=== PATIENT | male | born 1945 | race Caucasian/White ===

== ENCOUNTER 2018-10-12 21:15 | Observation (INO) | payer OTHER, MEDICARE ==
--- NOTE | 2018-10-12 21:53 | EDPHY ---
H & P Stated Complaint: a-fib Time Seen by Provider: 10/12/18 22:08 HPI/ROS: HPI CHIEF COMPLAINT: A fib HISTORY OF PRESENT ILLNESS: Very pleasant 73-year-old male, history of AFib on Eliquis metoprolol, forgot to take his metoprolol on Eliquis this morning. He states around 8:00 a.m. This evening he fell con a off and fatigued and lightheaded. Took his pulse and noted it was irregular fast the hook himself up to his phone EKG and that a red AFib. States he was getting heart rate in the 150s to 170s. Patient denies any chest pain or shortness of breath, denies any pleuritic pain. Patient denies any chest pain, shortness of breath, dyspnea on exertion. Past Medical History: AFib, multiple myeloma, bladder CA Past Surgical History: Knee surgery, gallbladder, bladder cancer removal Social History: Denies drugs alcohol tobacco. Family History: Noncontributory ROS REVIEW OF SYSTEMS: 10 Systems were reviewed and negative with the exception of the elements mentioned in the history of present illness. Exam Constitutional triage nursing summary reviewed, vital signs reviewed, awake/ alert. Appears well nontoxic Eyes normal conjunctivae and sclera, EOMI, PERRLA. HENT normal inspection, atraumatic, moist mucus membranes, no epistaxis, neck supple/ no meningismus, no raccoon eyes. Respiratory clear to auscultation bilaterally, normal breath sounds, no respiratory distress, no wheezing. Cardiovascular tachycardia, irregular, irregular rhythm no murmur, no edema, distal pulses normal. Gastrointestinal soft, non-tender, no rebound, no guarding, normal bowel sounds, no distension, no pulsatile mass. Genitourinary no CVA tenderness. Musculoskeletal no midline vertebral tenderness, full range of motion, no calf swelling, no tenderness of extremities, no meningismus, good pulses, neurovascularly intact. Skin pink, warm, & dry, no rash, skin atraumatic. Neurologic awake, alert and oriented x 3, AAOx3, moves all 4 extremities equally, motor intact, sensory intact, CN II-XII intact, normal cerebellar, normal vision, normal speech. Psychiatric normal mood/affect. Heme/Lymph/Immune no lymphadenopathy. Differential diagnosis includes but is not limited to: ACS, atypical chest pain , pneumothorax, pneumonia, pulmonary embolism, aortic dissection, congestive heart failure, tumor, musculoskeletal pain, esophageal pain, GERD, peptic ulcer disease, pancreatitis Medical Decision Making: Plan for this patient IV establishment IV fluid bolus , IV diltiazem, EKG, troponin, electrolytes, chest x-ray and re-evaluate. 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 Re-evaluation: EKG interpretation by me on record in [facility] system. Impression time of EKG 2135, AFib rate of 126, no acute ischemic changes. 1205: Patient remains tachycardia in AFib with RVR despite 20 mg IV diltiazem and diltiazem drip. Blood work has been reviewed. Negative troponin. Patient does not have chest pain. Chest x-ray: Negative for acute cardiopulmonary disease. Source: Patient - Personal History Current Tetanus Diphtheria and Acellular Pertussis (TDAP): Yes - Medical/Surgical History Hx Asthma: No Hx Chronic Respiratory Disease: No Hx Cardiac Disease: Yes Hx Renal Disease: No Hx Cirrhosis: No Hx Alcoholism: No Hx HIV/AIDS: No Hx Splenectomy or Spleen Trauma: No Other PMH: a- fib, multiple myloma, bladder ca - Social History Smoking Status: Never smoked Constitutional: Initial Vital Signs Temperature (C) 36.4 C 10/12/18 21:19 Heart Rate 85 10/12/18 21:19 Respiratory Rate 20 10/12/18 21:19 Blood Pressure 95/74 L 10/12/18 21:19 O2 Sat (%) 97 10/12/18 21:19 O2 Delivery Mode Room Air Allergies/Adverse Reactions: No Known Allergies Allergy (Unverified 10/09/09 15:26) Home Medications: Medication Instructions Recorded Apixaban [Eliquis] 5 mg PO BID 10/13/18 Dexamethasone [Decadron 4 MG (*)] 8 mg PO AD 10/13/18 Escitalopram Oxalate [Lexapro 10 5 mg PO DAILY 10/13/18 MG] LORazepam [Ativan (*)] 1 mg PO HS PRN 10/13/18 Metoprolol Tartrate [Lopressor 25 12.5 mg PO BID 10/13/18 mg (*)] Pomalidomide [Pomalyst] 2 mg PO AD 10/13/18 Medical Decision Making - Data Points Laboratory Results: Laboratory Results 10/12/18 21:35 10/12/18 21:35 Medications Given: Discontinued Medications Apixaban (Eliquis) 5 mg PO BID MAGDA Stop: 04/11/19 09:59 Last Admin: 10/13/18 11:36 Dose: 5 mg Diltiazem HCl (Cardizem 25 Mg/5 Ml Vial) 20 mg IVP EDNOW ONE Stop: 10/12/18 22:09 Last Admin: 10/12/18 22:16 Dose: 20 mg Escitalopram Oxalate (Lexapro) 5 mg PO DAILY MAGDA Stop: 04/11/19 09:59 Last Admin: 10/13/18 11:35 Dose: 5 mg Sodium Chloride (Ns) 1,000 mls @ 0 mls/hr IV EDNOW ONE; Wide Open PRN Reason: Protocol Stop: 10/12/18 22:09 Last Admin: 10/12/18 22:17 Dose: 1,000 mls Sodium Chloride (Ns) 1,000 mls @ 0 mls/hr IV ONCE ONE PRN Reason: Wide Open Stop: 10/12/18 23:27 Last Admin: 10/12/18 23:50 Dose: 1,000 mls Diltiazem/Dextrose (Diltiazem 125mg/125ml (Premix)) 125 mls @ 0 mls/hr IV EDNOW ONE; As Directed PRN Reason: Protocol Stop: 10/12/18 23:31 Last Admin: 10/12/18 23:51 Dose: 125 mls Sodium Chloride (Ns) 1,000 mls @ 100 mls/hr IV CONT MAGDA Stop: 04/11/19 04:59 Last Admin: 10/13/18 05:32 Dose: 1,000 mls Metoprolol Tartrate (Lopressor) 12.5 mg PO BID MAGDA Stop: 04/11/19 09:59 Last Admin: 10/13/18 11:35 Dose: 12.5 mg Point of Care Test Results: Chemistry 10/12/18 21:39 POC Troponin I 0.01 ng/mL ng/mL (0.00-0.08) Departure - Departure Disposition: [facility] Acute Clinical Impression: Atrial fibrillation Qualifiers: Atrial fibrillation type: unspecified Qualified Code(s): I48.91 - Unspecified atrial fibrillation Condition: Good
[2018-10-12] MEDS ORDERED: NS 1,000 ML IV ONE ×2 (22:08→23:26)
[2018-10-12] MEDS ORDERED: DILTIAZEM 25 MG/5 ML VIAL IVP ONE (22:08)
[2018-10-12 22:16] LABS: PLATELET COUNT 316 10^3/uL (150-400)
[2018-10-12 22:26] LABS: INR 0.94 (0.83-1.16); PROTIME(PATIENT) 12.8 SEC (12.0-15.0)
[2018-10-12] MEDS ORDERED: DILTIAZEM 125 MG in D5W 125 ML IV ONE (23:26)
[2018-10-12] MEDS ORDERED: DILTIAZEM HCL/D5W 125 ML IV ONE (23:30)
--- NOTE | 2018-10-12 23:36 | CPEKG ---
Test Reason : OPEN Blood Pressure : / mmHG Vent. Rate : 126 BPM Atrial Rate : 333 BPM P-R Int : 153 ms QRS Dur : 088 ms QT Int : 320 ms P-R-T Axes : 268 065 060 degrees QTc Int : 464 ms Atrial fibrillation Confirmed by Cinthia Navarrete ([id number]) on 10/12/2018 11:35:41 PM Referred By: Confirmed By:Cinthia Navarrete
[2018-10-13] MEDS ORDERED: ACETAMINOPHEN 325 MG TAB PO PRN (00:53)
[2018-10-13] MEDS ORDERED: ONDANSETRON 4 MG/2 ML VIAL IVP PRN (00:53)
[2018-10-13] MEDS ORDERED: ONDANSETRON DISINTEGRATING 4 MG TAB PO PRN (00:53)
[2018-10-13] MEDS ORDERED: DILTIAZEM 125 MG in D5W 125 ML IV SCH (01:00)
[2018-10-13] MEDS ORDERED: NS 1,000 ML IV SCH (05:00)
--- NOTE | 2018-10-13 05:58 | GHP ---
DATE OF ADMISSION: 10/13/2018 PRIMARY [facility] INSTALLER: [facility]. CHIEF COMPLAINT: Fast heart rate and generalized weakness. HISTORY OF PRESENT ILLNESS: This is a very pleasant 73-year-old gentleman with known history of atri al fibrillation, controlled with metoprolol and anticoagulated with Eliquis, multiple myeloma, remote history of bladder cancer, presents to the emergency department today with complaints of tachycardia and generalized weakness. The patient reports that he forgot his morning dose of metoprolol and Lucie ruth. He was at home this evening, he started to feel generally weak and slightly lightheaded. He d enies any chest pain or palpitations. He denies any shortness of breath or diaphoresis. No history of orthopnea, PND, or lower extremity edema. The patient used his cardia ap to evaluate his rhythm w [facility] reported it was in atrial fibrillation with heart rate in the 150s. He presented to the emergen cy department for additional evaluation and treatment. The patient has not had any regular episodes of atrial fibrillation with rapid ventricular response. He has generally been quite controlled since he was initially diagnosed with atrial fibrillation some time ago. REVIEW OF SYSTEMS: Ten systems reviewed and negative except as noted above. ALLERGIES: No known drug allergies. HOME MEDICATIONS: As per EMR, Revlimid, dexamethasone, aspirin, Ambien, Tussionex and Levaquin. PAST MEDICAL HISTORY: Significant for atrial fibrillation, controlled on metoprolol and anticoagulat ed on Eliquis, remote history of C. difficile in 2001, multiple myeloma on Revlimid, bladder cancer s tatus post resection in remission, and insomnia. PAST SURGICAL HISTORY: Significant for ACL repair in 1994, cholecystectomy, bladder cancer resection . FAMILY HISTORY: Negative for any cardiac disease or cardiac complications. SOCIAL HISTORY: The patient is , lives with his . They travel between [facility] and [place]. 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 He denies any tobacco, drugs, or alcohol. CODE STATUS: Full. PHYSICAL EXAMINATION: VITAL SIGNS: Upon arrival to the emergency department, blood pressure is 95/7 4, heart rate initially documented is 85, however, repeated is 130s, 140s, respiratory rate 20, O2 sa turation 97% on room air, temperature 36.4. Vitals currently available: Blood pressure is 90/60, re peat is 98/56, heart rate 56 to 60s, respiratory rate 13, O2 saturation 95% on room air, and temperat ure 36.6. GENERAL: No acute distress, pleasant adult gentleman is resting quietly in bed asleep. H e wakes easily to name. Pleasant and cooperative. HEAD: Normocephalic, atraumatic. EYES: Extraoc ular muscles grossly intact. Pupils equal, round, and reactive to light bilaterally and symmetric. No scleral icterus or conjunctival injection. ENT: Mucous membranes appear moist. No oropharyngeal erythema or exudates. Dentition intact. NECK: Supple. Trachea midline. CV: Regular rate and rh ythm, bradycardic 50s to 60s. No murmurs, rubs, or gallops appreciated. RESPIRATORY: Lungs clear t o auscultation bilaterally. No wheezes, rales, or rhonchi appreciated. ABDOMEN: Positive bowel mildred nds. Soft, nontender to palpation. No rebound, guarding, or masses appreciated. : No suprapubic tenderness to palpation. No Pastor catheter in place. EXTREMITIES: No cyanosis, clubbing, or edema . Patient with 2+ pedal pulses bilaterally and symmetric. NEURO: Grossly nonfocal. Moves all extr emities. Sits up independently. No facial drooping. PSYCH: Thought process, content and questions are all appropriate. Patient is pleasant and cooperative. LABORATORY STUDIES: WBC 6.81, H and H is 14.5 and 42.0, MCV of 94.0, platelet count is 316. No band s. PT is 12.8, INR 0.94, PTT is 30.1. Sodium is 138, potassium is 4.3, chloride 106, CO2 24, anion gap 8, BUN is 26, creatinine is 1.2, GFR of 60, glucose is 108, calcium is 9.3, magnesium 2.0, total bilirubin 0.6, ALT is 26, AST is 16, alkaline phosphatase 77. BTNP is 134. Total protein 6.1, album in is 3.8. TSH is 6.850. Point of care troponin 0.01. Chest x-ray: Image and report reviewed myself. Lungs are clear without any evidence of congestive h eart failure. EKG reviewed myself. Atrial fibrillation with RVR, rate in the 120s. No acute ST changes. ASSESSMENT/PLAN: A 73-year-old gentleman with history of atrial fibrillation on Eliquis and metoprol ol, multiple myeloma on Revlimid, who presents to the emergency department today with complaints of l ightheadedness and generalized weakness as well as noted tachycardia. 1. Atrial fibrillation with rapid ventricular response. The patient was given a diltiazem bolus fol lowed by a drip. He did have an initial episode of hypotension resolved with some IV fluid supplemen tation. The patient was subsequently converted into sinus bradycardia on telemetry shortly after arr ival to the PCU floor. Will plan to IV fluid hydrate and resume patient's metoprolol and Eliquis. T he patient has outpatient followup with Cardiology in [place] where he plans to return after the new year already set up. A TSH was obtained and was mildly elevated. Remainder TFTs are pending for tony luation. TSH may be artificially be elevated in the setting of acute atrial fibrillation with rapid ventricular response. 2. Hypotension related to diltiazem administration, fluid responsive. Continue with IV fluid supple mentation. 3. Chronic medical issues. Multiple myeloma. Patient is on Revlimid, will continue. 4. Fluid electrolyte nutrition. IV fluids for supplementation and blood pressure support. Electrol ytes are adequate. Did not require placement. Cardiac diet has been ordered. PROPHYLAXIS: On Eliquis, SCDs p.r.n. CODE STATUS: Full. DISPOSITION: Patient admitted to observation status on the PCU floor for close cardiac monitoring. /[id number]/MODL
[2018-10-13] MEDS ORDERED: LORazepam 0.5 MG TAB PO PRN (09:47)
[2018-10-13] MEDS ORDERED: POMALIDOMIDE 2 MG PO SCH (10:00)
[2018-10-13] MEDS ORDERED: METOPROLOL TARTRATE 25 MG TAB PO SCH (10:00)
[2018-10-13] MEDS ORDERED: ESCITALOPRAM OXALATE 10 MG TAB PO SCH (10:00)
[2018-10-13] MEDS ORDERED: APIXABAN 5 MG TAB PO SCH (10:00)
[2018-10-13 11:15] VITALS: BP 119/71
--- NOTE | 2018-10-13 15:22 | CPEKG ---
Test Reason : OPEN Blood Pressure : / mmHG Vent. Rate : 056 BPM Atrial Rate : 056 BPM P-R Int : 132 ms QRS Dur : 096 ms QT Int : 454 ms P-R-T Axes : 059 057 051 degrees QTc Int : 439 ms Sinus rhythm Normal sinus rhythm has replaced atrial fibrillation noted on prior ECG Confirmed by Vivek Holm ([id number]) on 10/13/2018 3:21:34 PM Referred By: Confirmed By:Vivek Holm
--- NOTE | 2018-10-13 16:51 | PDDCSUM ---
Discharge Summary Discharge Summary: Date of Admission: 10/13/2018 Date of Discharge: 10/13/2018 Consults: N/A Procedures: N/A Followup: PCP, EP Hospital Course Problem List: 73 yo M with a PMHx of A Fib on Eliquis and metoprolol, MM on Revlimid, who presented to ED with CC of LH and weakness and was found to be in A Fib with RVR. He was given a diltiazem bolus followed by a gtt. He had an episode of hypotension with resolved with IVF. He subsequently converted into sinus bradycardia shortly after arrival to the PCU floor. We resumed his home Metoprolol and Eliquis. He has a followup with AWILDA HARRIS in [place] where he is returning to after the new year. TSH was obtained which was mildly elevated, T3 /T4 WNL. Time spent on discharge was >35 minutes with >50% of time spent on patient education and counseling.
== END 2018-10-13 13:20 | disposition home or self-care (01) ==
LOC: F2W 10-13 00:48
PROVIDERS: ADMIT Family Medicine; ATTEND Family Medicine
DX: I48.91 Unspecified atrial fibrillation (principal); I95.2 Hypotension due to drugs; E86.0 Dehydration; C90.00 Multiple myeloma not having achieved remission; I25.10 Atherosclerotic heart disease of native coronary artery without angina pectoris; G47.00 Insomnia, unspecified; Z79.01 Long term (current) use of anticoagulants; Z79.82 Long term (current) use of aspirin; Z85.51 Personal history of malignant neoplasm of bladder; Z86.19 Personal history of other infectious and parasitic diseases
CPT/HCPCS: 71045; 93005; 96361; 96374; 96375; 99285; G0378; 84481-90; 84484-ER

== ENCOUNTER → 2019-03-27 | Outpatient (CLI) | payer OTHER, MEDICARE | LOC: FIMAGING 09:21 ==